=== PATIENT | male | born 1945 | race Two or more races ===

== ENCOUNTER 2017-08-14 08:20 | Outpatient (CLI) | payer OTHER ==
[~2017-08-14 08:20] MED LIST: AVALIDE 150-12.1 TA1 PO; CIPRO750 MG PO; CLEOCIN HCL300 MG PO; GLUCOTROL10 MG PO; METFORMIN HCL1000 MG PO; PERCOCET 5/3251 TAB PO
== END 2017-08-14 08:26 | disposition home or self-care (01) ==
LOC: MRI 08:20
DX: R74.8 Abnormal levels of other serum enzymes (principal)
CPT/HCPCS: 74181

== ENCOUNTER → 2017-09-06 | Outpatient (CLI) | payer OTHER | END | disposition home or self-care (01) | LOC: NUCLEAR 07:00 | DX: E11.9 Type 2 diabetes mellitus without complications (principal); I25.10 Atherosclerotic heart disease of native coronary artery without angina pectoris; I10 Essential (primary) hypertension | CPT/HCPCS: 78452; 93017; A9500; J0153 ==